=== PATIENT | female | born 1995 | race Caucasian/White ===

== ENCOUNTER 2019-02-11 17:01 | Emergency (ER) | payer OTHER ==
--- NOTE | 2019-02-11 19:00 | ED Physician Documentation ---
History of Present Illness - Stated complaint Stated Complaint: L FINGER LAC - Chief complaint Chief Complaint: Laceration - History obtained from History obtained from: Patient - History of Present Illness Timing: Today - Additonal information Additional information: Patient is a previously healthy, right-handed 23-year-old female presenting with superficial abrasion to the ventral aspect of the left pinky finger after excellently cutting it on a bagel earlier today. Patient reports that she washed it with water, but is still expensing mild bleeding and discomfort. No significant change in sensation, strength, range of motion. No other injuries. Tetanus unknown. No other improving or worsening factors noted. Review of Systems Skin: reports: Laceration (s) Musculoskeletal: reports: Extremity pain Neurologic: denies: Focal weakness, Numbness PD PAST MEDICAL HISTORY - Past Medical History Respiratory: None Endocrine/Autoimmune: None GI: None [employer]: None : None Musculoskeletal: None Derm: None - Past Surgical History Past Surgical History: No - Present Medications Home Medications: Ambulatory Orders Medication Instructions Recorded Confirmed No Known Home Medications 02/11/19 02/11/19 - Allergies Allergies/Adverse Reactions: Allergies Allergy/AdvReac Type Severity Reaction Status Date / Time No Known Drug Allergies Allergy Verified 02/11/19 17:28 - Social History Does the pt smoke?: No Smoking Status: Never smoker PD ED PE NORMAL - Vitals Vital signs reviewed: Yes - General General: Alert and oriented X 3, No acute distress, Well developed/nourished - HEENT HEENT: Atraumatic, Moist mucous membranes - Neck Neck: Supple, no meningeal sign - Cardiac Cardiac: Strong equal pulses - Respiratory Respiratory: No respiratory distress - Derm Derm: Normal color, Warm and dry, No rash, Other (Less than half an inch superficial laceration to the palmar side of the left pinky finger without damage to underlying structure, tendon injury, signs of infection, retained foreign body, or other complication.) - Extremities Extremities: No deformity, No tenderness to palpate - Neuro Neuro: Alert and oriented X 3, No motor deficit, No sensory deficit - Psych Psych: Normal mood, Normal affect Results - Vitals Vitals: Vital Signs - 24 hr 02/11/19 17:27 Temperature 37.1 C Heart Rate 56 L Respiratory 18 Rate Blood Pressure 131/52 H O2 Saturation 100 Oxygen O2 Source Room air Procedures - Laceration (location) Finger left Length in cm: 0.7 Wound type: Curved Neurovascular status: Sensory intact, Motor intact, Vascular intact Tendon involvement: Tendon intact Wound Preparation: Irrigated copiously NS Skin layer closure: Dermabond, Steri strips Other: Patient tolerated well, No complications, Neurovascular intact, Tetanus booster given PD MEDICAL DECISION MAKING - ED course Complexity details: re-evaluated patient, considered differential, d/w patient, d/w family ED course: Patient presenting with simple laceration to left pinky finger. Tetanus updated. Wound cleaned and repaired in the ED without issue. Discussed wound care, return precautions, appropriate follow-up. Patient voiced understanding and is comfortable with discharge plan. Departure - Departure Disposition: 01 Home, Self Care Clinical Impression: Laceration Condition: Good Instructions: ED Laceration All Follow-Up: your,doctor [Other] - Within 3 Days Comments: Please keep wound clean and dry using running water and soap only to clean. Do not submerge underwater. Please do not remove tape or glue as they will come o ff on their own. May elevate, apply ice, and use ibuprofen/Tylenol for pain and swelling relief. Return to ED sooner if experience signs of infection or have other concerns such as wound reopening. May otherwise follow-up with primary care physician in next 2 to 3 days.
[2019-02-11] MEDS ORDERED: TETANUS/DIPHTHERIA/PERTUSSIS 0.5 ML SYRINGE IM ONE (19:13)
[2019-02-11 20:03] VITALS: BP 120/71
== END 2019-02-11 20:01 | disposition home or self-care (01) ==
LOC: ED 17:01
DX: S61.217A Laceration without foreign body of left little finger without damage to nail, initial encounter (principal); W45.8XXA Other foreign body or object entering through skin, initial encounter; Y93.G1 Activity, food preparation and clean up; Z23 Encounter for immunization
CPT/HCPCS: 12001; 90471